=== PATIENT | male | born 1945 | race African-American/Black ===

== ENCOUNTER 2016-10-27 14:18 | Emergency (ER) | payer OTHER, MEDICAID ==
[~2016-10-27] VITALS: Ht 182.9 cm; Wt 78.0 kg
[2016-10-27] MEDS ORDERED: CLON0.1T PO (14:29)
[2016-10-27] MEDS ORDERED: BENA20TA3 PO (14:29)
[2016-10-27] MEDS ORDERED: LOV40 SQ (14:29)
[2016-10-27] MEDS ORDERED: DIPH25CA83 PO (14:29)
[2016-10-27 17:48] LABS: CHLORIDE 96 mEq/L (98-107)
[2016-10-27 17:49] LABS: INR 1.1
[2016-10-27 17:51] LABS: CARBON DIOXIDE 32 mEq/L (21-32)
[2016-10-27 17:53] LABS: BASOPHILS % 0.9 % (0.0-2.0); EOSINOPHILS % 3.6 % (0.0-5.0); HEMATOCRIT. 43.5 % (42.0-52.0); HEMOGLOBIN. 12.8 g/dL (14.0-18.0); LYMPHOCYTES % 26.9 % (20.0-50.0); MEAN CORPUSCULAR HEMOGLOBIN 17.6 pg (28.0-32.0); MEAN CORPUSCULAR VOLUME 59.9 fL (80.0-94.0); MEAN PLATELET VOLUME 8.6 fl (7.4-10.4); MONOCYTES % 11.9 % (2.0-8.0); NEUTROPHILS % 56.7 % (40.0-76.0); PLATELET 477 x1000/uL (130-400); RED BLOOD CELL COUNT 7.26 mill/uL (4.7-6.1); RED CELL DISTRIBUTION WIDTH 20.7 % (11.6-14.6)
[2016-10-27 17:59] LABS: TROPONIN I < 0.02 ng/mL (0.00-0.04)
[2016-10-27 18:37] LABS: PLATELET ESTIMATE INCREASED
[2016-10-27 20:12] LABS: CLARITY URINE CLEAR (CLEAR); COLOR URINE YELLOW (YELLOW); GLUCOSE URINE NEGATIVE (NEGATIVE); KETONES URINE NEGATIVE (NEGATIVE); LEUKOCYTE ESTERASE URINE NEGATIVE (NEGATIVE); NITRITE URINE NEGATIVE (NEGATIVE); OCCULT BLOOD URINE NEGATIVE (NEGATIVE); PH URINE 5.5 (4.5-8.0); PROTEIN URINE NEGATIVE (NEGATIVE); SPECIFIC GRAVITY URINE 1.014 (1.005-1.030)
[2016-10-28 01:04] VITALS: BP 135/79
== END 2016-10-28 01:11 | disposition home or self-care (01) ==
LOC: ER 14:34
DX: M25.561 Pain in right knee (principal); I50.9 Heart failure, unspecified; I11.0 Hypertensive heart disease with heart failure; J44.9 Chronic obstructive pulmonary disease, unspecified
CPT/HCPCS: 36415; 71010; 73562; 80053; 81003; 83880; 84484; 85025; 85610; 93005; 99285